=== PATIENT | male | born 1940 | race Hispanic/Latino ===

== ENCOUNTER 2019-02-12 10:58 | Outpatient (CLI) | payer MEDICARE ==
[2019-02-12 12:31] LABS: Hematocrit 43.8 % (35.5-45.6); Hemoglobin 14.5 gm/dl (11.8-15.2); Mean Corpuscular HGB Conc 33 % (32-34); Mean Corpuscular Volume 80 fl (84-94); Platelet Count 251 K/mm3 (140-440); Red Blood Count 5.46 M/mm3 (3.65-5.03)
[2019-02-12 12:34] LABS: Red Cell Distribution Width 20.5 % (13.2-15.2)
[2019-02-12 12:41] LABS: Chol/HDL Ratio 4.2 %
== END 2019-02-12 10:59 | disposition home or self-care (01) ==
LOC: LAB 10:58
PROVIDERS: ATTEND Internal Medicine
DX: E11.9 Type 2 diabetes mellitus without complications (principal); E78.2 Mixed hyperlipidemia; I10 Essential (primary) hypertension; G47.00 Insomnia, unspecified; I65.29 Occlusion and stenosis of unspecified carotid artery
CPT/HCPCS: 36415; 80061; 83036; 84153; 84443; 85027